=== PATIENT | female | born 1955 | race African-American/Black ===

== ENCOUNTER 2017-09-04 11:45 | Emergency (ER) | payer MEDICAID, OTHER ==
[~2017-09-04] VITALS: Ht 170.2 cm; Wt 88.0 kg
[2017-09-04 12:05] VITALS: BP 141/71
[2017-09-04] MEDS ORDERED: Albuterol/Ipratropium 3ml neb HHN ONE (12:30)
[2017-09-04] MEDS ORDERED: ALBUTEROL SULF8.5 GM INH (13:46)
[2017-09-04] MEDS ORDERED: PREDNISONE20 MG ORAL (13:46)
[2017-09-04 14:00] VITALS: BP 137/72
--- NOTE | 2017-09-04 16:21 | Diagnostic Imaging Report ---
Indication: Shortness of breath Technique: One view of the chest Comparison: 02/12/2011 Findings: Lungs and pleural spaces are clear. Heart size is normal . No significant interim change Impression: No acute process
--- NOTE | 2017-09-04 18:27 | Emergency Room Report ---
History of Present Illness General Chief Complaint: Chest Pain Source: Patient Present Illness HPI Patient presented for chest pain. Patient had intermittent symptoms of the past few days with associated cough. Patient has a current smoker. She reports having subjective fever. She denied any vomiting or diarrhea. She reported having a nonproductive cough. She reports having intermittent tightness sensation to the chest. Worse with coughing. She had previously been on inhalers but currently out Allergies: Coded Allergies: No Known Allergies (Unverified , 09/04/17) Patient History Past Medical History: see triage record Now: No Reviewed Nursing Documentation: PMH: Agreed, PSxH: Agreed Nursing Documentation-PMH Hx Hypertension: Yes Review of Systems All Other Systems: negative except mentioned in HPI Physical Exam Vital Signs Date Time Temp Pulse Resp B/P (MAP) Pulse Ox O2 Delivery O2 Flow Rate FiO2 09/04/17 11:55 98.7 70 13 141/71 100 Room Air 98.8 Sp02 EP Interpretation: reviewed, normal General Appearance: normal inspection, well appearing, no apparent distress, alert, GCS 15 Head: atraumatic ENT: normal ENT inspection, hearing grossly normal, normal voice Neck: normal inspection, full range of motion, supple, no bony tend Respiratory: normal inspection, lungs clear, normal breath sounds, no respiratory distress, no retraction, no wheezing Cardiovascular #1: regular rate, rhythm, no edema Gastrointestinal: normal inspection, normal bowel sounds, non tender, soft, no guarding, no hernia Genitourinary: no CVA tenderness Musculoskeletal: normal inspection, back normal, normal range of motion Neurologic: normal inspection, alert, responsive, speech normal Psychiatric: normal inspection, judgement/insight normal, mood/affect normal Medical Decision Making Diagnostic Impression: Primary Impression: COPD (chronic obstructive pulmonary disease) ER Course Patient presented for shortness of breath. Differential included but was not limited to anemia, pneumonia, pneumothorax, myocardial infarction, pericardial effusion, congestive heart failure, acidosis. Because of complexity of patient' s case imaging studies were ordered. EKG interpreted by me showed normal sinus rhythm without acute ST-T wave changes. Patient was given breathing treatment as well as prednisone with improvement.The patient is advised to follow up with primary care doctor in 1-2 days. Patient is advised to return if any worsening condition or if any changes in status that are concerning. Chest x-ray one view interpreted by showed normal cardiac size without evident lung infiltrate. This report is dictated with Dragon furniture mover driver software which may occasionally lead to discrepancies related to use of this software. Last Vital Signs Date Time Temp Pulse Resp B/P (MAP) Pulse Ox O2 Delivery O2 Flow Rate FiO2 09/04/17 14:00 98.6 60 16 137/72 100 Room Air 98.6 Status: improved Disposition: HOME, SELF-CARE Condition: Stable Scripts Albuterol Sulfate* (ALBUTEROL SULFATE MDI*) 8.5 Gm Hfa.aer.ad 2 PUFF INH Q6H, #1 INH 0 Refills Prov: Fernando Gonzalez 09/04/17 Prednisone* (PREDNISONE*) 20 Mg Tablet 40 MG ORAL DAILY, #10 TAB Prov: Fernando Gonzalez 09/04/17 Patient Instructions: Nonspecific Chest Pain, Chronic Obstructive Pulmonary Disease Fernando Gonzalez Sep 04, 2017 18:27
== END 2017-09-04 14:00 | disposition home or self-care (01) ==
LOC: EMR 12:25
DX: J44.9 Chronic obstructive pulmonary disease, unspecified (principal); I10 Essential (primary) hypertension; F17.200 Nicotine dependence, unspecified, uncomplicated; R07.9 Chest pain, unspecified
CPT/HCPCS: 71045; 94640; 94664; 99284; J7512; J7620